=== PATIENT | female | born 1965 | race Caucasian/White ===

== ENCOUNTER → 2017-04-24 | Outpatient (CLI) | payer BC | END | disposition home or self-care (01) | LOC: CDC 15:38 | DX: Z01.810 Encounter for preprocedural cardiovascular examination (principal); R94.31 Abnormal electrocardiogram [ECG] [EKG] | CPT/HCPCS: 93000 ==

== ENCOUNTER 2017-06-17 07:00 | Day surgery (SDC) | payer BC ==
[~2017-06-17] VITALS: Ht 165.1 cm; Wt 81.6 kg
[~2017-06-17 07:00] MED LIST: BYSTOLIC2.5 MG PO; CYANOCOBALAM1000 MCG PO; FISH OIL 1,0001 EAC7 PO; LO-DOSE ASPIRIN81 M1 PO; MAGNESIUM250 MG PO; MICROZIDE12.5 M1 PO; ONE DAILY1 EAC3 PO; SYNTHROID88 MCG PO
[2017-06-17 08:03] VITALS: BP 115/60
[2017-06-17 10:55] VITALS: BP 108/40
[2017-06-17 11:36] VITALS: BP 115/60
== END 2017-06-17 11:45 | disposition home or self-care (01) ==
LOC: SDC 07:00
PROC: 0UDB8ZX Extraction of Endometrium, Via Natural or Artificial Opening Endoscopic, Diagnostic (ICD-10-PCS; principal; 2017-06-17)
DX: N95.0 Postmenopausal bleeding (principal); Z85.3 Personal history of malignant neoplasm of breast; I10 Essential (primary) hypertension; E78.5 Hyperlipidemia, unspecified; E03.9 Hypothyroidism, unspecified; E28.2 Polycystic ovarian syndrome; Z87.891 Personal history of nicotine dependence; Z79.82 Long term (current) use of aspirin
CPT/HCPCS: 88305; J1100; J1885; J2250; J2405; J3010; Q0175